=== PATIENT | female | born 1980 | race Hispanic/Latino ===

== ENCOUNTER 2024-07-22 12:13 | Emergency (ER) | payer BC ==
[2024-07-22] MEDS ORDERED: droPERidol 5 MG/2 ML VIAL ONE (12:54)
[2024-07-22] MEDS ORDERED: DIPHENHYDRAMINE 50 MG/ML VIAL ONE (12:54)
[2024-07-22] MEDS ORDERED: NA CHLORIDE 0.9% 1,000 ML ONE (12:55)
--- NOTE | 2024-07-22 12:56 | RAD REPORT ---
EXAM: CT brain without contrast HISTORY: Headache COMPARISON: None TECHNIQUE: Multiple contiguous axial images were obtained and a CT of the brain without contrast.. Sagittal and coronal reconstruction performed. Automated exposure control, adjustment of the mA and/or kV according to patient size, and/or iterative reconstruction. Unless otherwise specified, incidental f indings do not require dedicated imaging follow-u FINDINGS: Prominent artifact obscures portions of the brain. An intracranial bleed is not seen Ventricles are normal caliber No extra-axial fluid collection noted No significant hypodensity within the brain No fluid within the visualized sinuses or mastoids noted. IMPRESSION: No acute intracranial abnormality noted. If the patient's symptoms persist MRI of the brain would be recommended.
[2024-07-22] MEDS ORDERED: dexAMETHasone 10 MG/ML VIAL ONE (13:06)
[2024-07-22] MEDS ORDERED: Magnesium Sulfate 2gm IVPB 2 G/50 ML BAG IV ONE (13:06)
[2024-07-22 13:49] LABS: Absolute Eosinophils 0.1 K/uL (0-0.5); Absolute Lymphocytes (CBC) 2.8 K/uL (0.7-4.9); Absolute Neutrophil 12.1 K/uL (1.8-8.0); Basophils % 0.1 % (0-1.3); Eosinophils % 0.6 % (0-4.4); Hematocrit 36.3 % (36.0-45.0); Hemoglobin 11.5 g/dL (12.0-15.0); Lymphocytes % 17.8 % (15.3-44.8); MCH 27.1 pg (27.0-35.0); MCHC 31.6 g/dL (32.0-36.0); MCV 85.8 fL (80-100); MPV 7.8 fL (7.6-11.3); Neutrophils % 75.5 % (41.7-73.7); Platelets 361 thou/uL (152-406); RBC Red Blood Cell Count 4.23 M/uL (3.86-4.86); Red Cell Distribution Width 14.5 % (12.1-15.2)
[2024-07-22 14:00] LABS: Anion Gap 10.2 mEq/L (5.0-15.0); Potassium 3.2 mEq/L (3.5-5.1)
[2024-07-22] MEDS ORDERED: KETOROLAC 30 MG/ML INJ ONE (14:44)
[2024-07-22] MEDS ORDERED: MORPHINE 4 MG/ML SYR ONE (14:44)
[2024-07-22 15:13] LABS: Specific Gravity 1.009 (1.005-1.030); Sqamous Epithelial <5 /HPF (None Seen); Urine Bacteria <20 /HPF (<20); Urine Bilirubin NEGATIVE (Negative); Urine Blood Negative (Negative); Urine Clarity Clear (Clear); Urine Color Colorless (Yellow); Urine Culture Reflex Order NOT NEEDED; Urine Glucose 4+ (Over) (Negative); Urine Ketones 1+ (Negative); Urine Micro Reflex YN NO BILL MICROSCOPIC; Urine Mucus Slight /HPF (None Seen); Urine Nitrite NEGATIVE (Negative); Urine Protein NEGATIVE (Negative); Urine RBC <5 /HPF (None Seen); Urine Urobilinogen Normal (Normal); Urine WBC <5 /HPF (<5); Urine pH 7.5 (5.0-7.0)
--- NOTE | 2024-07-22 15:33 | EDPHYS ---
Physician Documentation [facility] Name: Brynn Cooney Age: 43 yrs Sex: Female : 1980 Arrival Date: 07/22/2024 Time: 12:13 Bed 3 Private MD: ED Physician Zach Pendleton HPI: 07/22 13:00 This 43 yrs old Female presents to ER via Wheelchair with complaints of ec2 Headache, Worst Ever, Vomiting. 13:00 Patient arrives today for evaluation of a headache. Reports that she has chronic pain ec2 and has a pain pump in place. Patient planing of a headache without any falls injuries or trauma, complaining of nausea as well as vomiting.. Historical: - Allergies: 12:26 No Known Allergies; ko1 - PMHx: 12:26 Diabetes mellitus; Chronic pain; ko1 - PSHx: 12:26 back surgery; ko1 - Immunization history:: Adult Immunizations up to date. - Infectious Disease History:: Denies. - Social history:: Smoking status: Patient denies any tobacco usage or history of. ROS: 13:01 Constitutional: as per hpi ec2 Exam: 13:01 Constitutional: GEN: NAD Head: atraumatic Eyes: EOMI Ears: External ears are ec2 normal. CV: regular rate LUNGS: no respiratory distress ABD: non-distended SKIN: no evidence of rashes MSK: no evidence of trauma Vital Signs: 12:23 BP 153 / 94; Pulse 98; Resp 18; Temp 98.5; Pulse Ox 100% ; ko1 13:31 BP 168 / 100; Pulse 95; Resp 29; Pulse Ox 100% on R/A; MAP 119 mmHg; Pain 10/10; tm6 14:53 BP 155 / 93; Pulse 90; Resp 25; Pulse Ox 100% on R/A; MAP 111 mmHg; Pain 8/10; tm6 16:08 BP 157 / 107; Pulse 98; Resp 24; Temp 98.5; Pulse Ox 100% on R/A; MAP 122 mmHg; Pain tm6 4/10; 13:31 Pain Scale: Adult tm6 14:53 Pain Scale: Adult tm6 16:08 Pain Scale: Adult tm6 MDM: 12:20 Medical Screening Exam initiated ec2 13:01 Data reviewed: vital signs. ED course: Patient with history of chronic pain arrives ec2 today for evaluation of headache. Examination remarkable for nontoxic individual was otherwise neuro intact. Will obtain lab work, CT imaging and treat the patient's headache.. 15:32 ED course: On reassessment patient is resting comfortably without issue. I will ec2 discharge home have follow-up with her pain doctor. Of note patient does meet SIRS criteria however no infectious process found, low suspicion for infectious process differential diagnosis include process such as intracranial mass, electrolyte disturbances, anemia. 07/22 12:29 Order name: Basic Metabolic Panel; Complete Time: 14:04 ec2 07/22 12:29 Order name: CBC with Diff; Complete Time: 13:52 ec2 07/22 14:40 Order name: UAM; Complete Time: 15:27 ec2 07/22 12:29 Order name: CT Head Brain wo Cont; Complete Time: 13:01 ec2 07/22 12:29 Order name: Cardiac monitoring; Complete Time: 12:57 ec2 07/22 12:29 Order name: IV Saline Lock; Complete Time: 13:23 ec2 07/22 12:29 Order name: Labs collected and sent; Complete Time: 13:23 ec2 07/22 12:29 Order name: O2 Per Protocol; Complete Time: 12:56 ec2 07/22 12:29 Order name: O2 Sat Monitoring; Complete Time: 12:56 ec2 Administered Medications: 13:30 Drug: NS 0.9% IV 1000 ml IV at 1000 ml once; to be given as a bolus over 60 minutes tm6 Route: IV; Rate: 1000 ml; Site: right antecubital; 14:53 Follow up: Response: No adverse reaction; IV Status: Completed infusion; IV Intake: tm6 1000ml 13:30 Drug: Droperidol IVP 2.5 mg IVP once Route: IVP; Site: right antecubital; tm6 14:53 Follow up: Response: No adverse reaction tm6 13:30 Drug: diphenhydrAMINE IVP 50 mg IVP once Route: IVP; Site: right antecubital; tm6 14:53 Follow up: Response: No adverse reaction tm6 13:30 Drug: Decadron - Dexamethasone IVP 10 mg IVP once Route: IVP; Site: right antecubital; tm6 14:53 Follow up: Response: No adverse reaction tm6 13:30 Drug: Magnesium Sulfate IVPB 2 grams IVPB once over 30 mins Route: IVPB; Infused Over: tm6 30 mins; Site: right antecubital; 14:52 Follow up: Response: No adverse reaction; IV Status: Completed infusion; IV Intake: [id number] 14:52 Drug: Ketorolac IVP 30 mg IVP once Route: IVP; Site: right antecubital; tm6 16:09 Follow up: Response: No adverse reaction tm6 14:52 Drug: morphine IVP or IV 4 mg IVP once over 4 mins Route: IVP; Infused Over: 4 mins; tm6 Site: right antecubital; 16:09 Follow up: Response: No adverse reaction tm6 Disposition Summary: 07/22/24 15:33 Discharge Ordered Notes: Location: Home ec2 Condition: Stable ec2 Diagnosis - Headache ec2 - Nausea with vomiting, unspecified ec2 - Hypokalemia ec2 - Leukocytosis ec2 Followup: ec2 - With: Private Physician - When: - Reason: Re-evaluation by your physician Discharge Instructions: - Discharge Summary Sheet ec2 - General Headache Without Cause ec2 Forms: - Medication Reconciliation Form ec2 - Antibiotic Education ec2 - Prescription Opioid Use ec2 - Patient Portal Instructions ec2 - Leadership Thank You Letter ec2 Signatures: Dispatcher [employer] Josefina Soto RN RN ko1 Zach Penldeton MD MD ec2 Meli Sinclair RN RN tm6
--- NOTE | 2024-07-22 15:33 | ER ---
Nurse's Notes [facility] Name: Brynn Cooney Age: 43 yrs Sex: Female : 1980 Arrival Date: 07/22/2024 Time: 12:13 Bed 3 Private MD: Diagnosis: Headache;Nausea with vomiting, unspecified;Hypokalemia;Leukocytosis Presentation: 07/22 12:23 Chief complaint: Patient states: had some dye through pain pump in my back this morning ko1 and it triggered a migraine or something. I had some leakage from my back. Coronavirus screen: At this time, the client does not indicate any symptoms associated with coronavirus-19. Ebola Screen: No symptoms or risks identified at this time. Initial Sepsis Screen: Does the patient meet any 2 criteria? No. Patient's initial sepsis screen is negative. Does the patient have a suspected source of infection? No. Patient's initial sepsis screen is negative. Risk Assessment: Do you want to hurt yourself or someone else? Patient reports no desire to harm self or others. Onset of symptoms was July 22, 2024. 12:23 Method Of Arrival: Wheelchair ko1 12:23 Acuity: SANDY 3 ko1 Triage Assessment: 12:26 Headache History: Denies prior headaches. General: Appears distressed, uncomfortable, ko1 Behavior is cooperative, appropriate for age. Pain: Complains of pain in head Pain currently is 10 out of 10 on a pain scale. Pain began 1 hour ago. Also complains of no other associated symptoms. Neuro: No deficits noted. Historical: - Allergies: 12:26 No Known Allergies; ko1 - PMHx: 12:26 Diabetes mellitus; Chronic pain; ko1 - PSHx: 12:26 back surgery; ko1 - Immunization history:: Adult Immunizations up to date. - Infectious Disease History:: Denies. - Social history:: Smoking status: Patient denies any tobacco usage or history of. Screenin:31 [facility] ED Fall Risk Assessment (Adult) History of falling in the last 3 months, tm6 including since admission No falls in past 3 months (0 pts) Confusion or Disorientation No (0 pts) Intoxicated or Sedated No (0 pts) Impaired Gait No (0 pts) Mobility Assist Device Used No (0 pt) Altered Elimination No (0 pt) Score/Fall Risk Level 0 - 2 = Low Risk Oriented to surroundings, Maintained a safe environment, Educated pt \T\ family on fall prevention, incl call for assistance when getting out of bed. Abuse screen: Denies threats or abuse. Denies injuries from another. Nutritional screening: No deficits noted. Tuberculosis screening: No symptoms or risk factors identified. Assessment: 13:31 General: Appears distressed, Behavior is cooperative. Pain: Complains of pain in head tm6 Pain currently is 10 out of 10 on a pain scale. Pain began 4 hours ago. Neuro: Level of Consciousness is awake, alert, obeys commands, Oriented to person, place, time, situation, Reports headache since this morning. Cardiovascular: Patient's skin is warm and dry. Respiratory: Airway is patent Respiratory effort is even, unlabored. GI: Abdomen is flat, non-distended, Reports nausea. : No signs and/or symptoms were reported regarding the genitourinary system. EENT: No signs and/or symptoms were reported regarding the EENT system. Derm: No signs and/or symptoms reported regarding the dermatologic system. Derm: No signs and/or symptoms reported regarding the dermatologic system. Musculoskeletal: No signs and/or symptoms reported regarding the musculoskeletal system. 14:54 Reassessment: Patient and/or family updated on plan of care and expected duration. Pain tm6 level reassessed. Patient is alert, oriented x 3, equal unlabored respirations, skin warm/dry/pink. 16:08 Reassessment: Patient and/or family updated on plan of care and expected duration. Pain tm6 level reassessed. Patient is alert, oriented x 3, equal unlabored respirations, skin warm/dry/pink. 16:08 Reassessment: Patient states feeling better. tm6 Vital Signs: 12:23 BP 153 / 94; Pulse 98; Resp 18; Temp 98.5; Pulse Ox 100% ; ko1 13:31 BP 168 / 100; Pulse 95; Resp 29; Pulse Ox 100% on R/A; MAP 119 mmHg; Pain 10/10; tm6 14:53 BP 155 / 93; Pulse 90; Resp 25; Pulse Ox 100% on R/A; MAP 111 mmHg; Pain 8/10; tm6 16:08 BP 157 / 107; Pulse 98; Resp 24; Temp 98.5; Pulse Ox 100% on R/A; MAP 122 mmHg; Pain tm6 410; 13:31 Pain Scale: Adult tm6 14:53 Pain Scale: Adult tm6 16:08 Pain Scale: Adult tm6 ED Course: 12:17 Patient arrived in ED. sj2 12:20 Zach Pendleton MD is Attending Physician. ec2 12:25 Triage completed. ko1 12:26 Arm band placed on right wrist. Patient placed in an exam room, on a stretcher, on ko1 cardiac cath technician, on pulse oximetry, Patient notified of wait time. 12:28 Mo Mckenzie, RN is Primary Nurse. bp 12:50 CT Head Brain wo Cont In Process Unspecified. EDMS 13:29 Inserted saline lock: 22 gauge in right antecubital area, using aseptic technique. tm6 Blood collected. Flushed with 10 mL NS. 13:30 Basic Metabolic Panel Sent. tm6 13:30 CBC with Diff Sent. tm6 13:31 Patient has correct armband on for positive identification. Bed in low position. Call tm6 light in reach. Side rails up X 1. Provided Education on: use of call mills. Client placed on continuous cardiac and pulse oximetry monitoring. NIBP monitoring applied. hall monitor on. Pulse ox on. NIBP on. Door closed. Noise minimized. Lights dimmed. Warm blanket given. 16:09 No provider procedures requiring assistance completed. IV discontinued, intact, tm6 bleeding controlled, No redness/swelling at site. Pressure dressing applied. Administered Medications: 13:30 Drug: NS 0.9% IV 1000 ml IV at 1000 ml once; to be given as a bolus over 60 minutes tm6 Route: IV; Rate: 1000 ml; Site: right antecubital; 14:53 Follow up: Response: No adverse reaction; IV Status: Completed infusion; IV Intake: tm6 1000ml 13:30 Drug: Droperidol IVP 2.5 mg IVP once Route: IVP; Site: right antecubital; tm6 14:53 Follow up: Response: No adverse reaction tm6 13:30 Drug: diphenhydrAMINE IVP 50 mg IVP once Route: IVP; Site: right antecubital; tm6 14:53 Follow up: Response: No adverse reaction tm6 13:30 Drug: Decadron - Dexamethasone IVP 10 mg IVP once Route: IVP; Site: right antecubital; tm6 14:53 Follow up: Response: No adverse reaction tm6 13:30 Drug: Magnesium Sulfate IVPB 2 grams IVPB once over 30 mins Route: IVPB; Infused Over: tm6 30 mins; Site: right antecubital; 14:52 Follow up: Response: No adverse reaction; IV Status: Completed infusion; IV Intake: [id number] 14:52 Drug: Ketorolac IVP 30 mg IVP once Route: IVP; Site: right antecubital; tm6 16:09 Follow up: Response: No adverse reaction tm6 14:52 Drug: morphine IVP or IV 4 mg IVP once over 4 mins Route: IVP; Infused Over: 4 mins; tm6 Site: right antecubital; 16:09 Follow up: Response: No adverse reaction tm6 Medication: 13:31 VIS not applicable for this client. tm6 Intake: 14:52 IV: 50ml; Total: 50ml. tm6 14:53 IV: 1000ml; Total: 1050ml. tm6 Outcome: 15:33 Discharge ordered by MD. barron 16:09 Discharged to home via wheelchair, with family, tm6 16:09 Condition: stable 16:09 Discharge instructions given to patient, family, Instructed on discharge instructions, follow up and referral plans. Demonstrated understanding of instructions, follow-up care, 16:09 Patient left the ED. tm6 Signatures: Dispatcher [employer] Mo Stauffer RN RN bp Oliver, Kathy, RN RN ko1 Zach Pendleton MD MD ec2 Masterson, Tawney, RN RN tm6 Yari Graham [facility]
[2024-07-22 16:28] VITALS: TEMP 98.5; O2SAT 100
[2024-07-22 16:40] VITALS: BP 157/107
== END 2024-07-22 16:09 | disposition home or self-care (01) ==
LOC: ER 12:13
DX: R51.9 Headache, unspecified (principal); R11.2 Nausea with vomiting, unspecified; E87.6 Hypokalemia; D72.829 Elevated white blood cell count, unspecified; E11.9 Type 2 diabetes mellitus without complications
CPT/HCPCS: 96365; 85025; 81001; 80048; 36415; 70450; 96375; 99285; J3475; J1200; J1100; J1790; J7030